=== PATIENT | male | born 1995 | race Caucasian/White ===

== ENCOUNTER 2023-07-31 15:26 | Emergency (ER) | payer OTHER ==
[2023-07-31 15:37] VITALS: BP 137/86; PULSE 69; RESP 18; TEMP 98; BMI 29.5
== END 2023-07-31 18:14 | disposition home or self-care (01) ==
LOC: JERFT 15:26 → JER 15:26 → JERFT 18:14
DX: R07.81 Pleurodynia (principal); S20.211A Contusion of right front wall of thorax, initial encounter; M79.10 Myalgia, unspecified site; V49.50XA Passenger injured in collision with unspecified motor vehicles in traffic accident, initial encounter; Y92.410 Unspecified street and highway as the place of occurrence of the external cause
CPT/HCPCS: 71101-TC-RT-FY; 99283-25